=== PATIENT | female | born 1970 | race Asian ===

== ENCOUNTER → 2023-03-14 15:41 | Outpatient (REF) | payer BC, SELFPAY | LOC: HWWDC 15:41 | PROVIDERS: ATTENDING PHYSICIAN Internal Medicine | DX: Z12.31 Encounter for screening mammogram for malignant neoplasm of breast (principal) | CPT/HCPCS: 77063; 77067 ==

== ENCOUNTER → 2023-09-20 09:58 | Outpatient (REF) | payer BC, SELFPAY | LOC: HWRAD 09:58 | PROVIDERS: ATTENDING PHYSICIAN Internal Medicine Gastroenterology; FAMILY PHYSICIAN Internal Medicine | DX: B18.1 Chronic viral hepatitis B without delta-agent (principal) | CPT/HCPCS: 76700; 93975 ==

== ENCOUNTER → 2024-04-10 09:27 | Outpatient (REF) | payer BC, SELFPAY | LOC: HWRAD 09:27 | PROVIDERS: ATTENDING PHYSICIAN Internal Medicine Gastroenterology; FAMILY PHYSICIAN Internal Medicine | DX: B18.1 Chronic viral hepatitis B without delta-agent (principal) | CPT/HCPCS: 76700 ==